=== PATIENT | male | born 1975 | race Two or more races ===

== ENCOUNTER 2024-01-09 16:35 | Inpatient (IN) | payer MEDICAID, OTHER ==
[~2024-01-09] VITALS: Ht 182.9 cm; Wt 152.0 kg
[2024-01-09 17:42] LABS: Urine WBC None Seen /hpf (0 - 3)
[2024-01-09 18:07] LABS: Amphetamine Screen, Urine Neg (NEGATIVE); Barbiturate Scree,Urine Neg (NEGATIVE); Benzodiazephine Screen, Urine Neg (NEGATIVE); Cannabinoid Screen, Urine Pos (NEGATIVE); Cocaine Screen, Urine Neg (NEGATIVE); Opiate Scree,Urine Neg (NEGATIVE); Phencyclidine Screen, Urine Neg (NEGATIVE)
[2024-01-09 18:24] LABS: Urine Bacteria NONE SEEN /hpf (None Seen); Urine Blood Negative /uL (Negative); Urine Clarity Clear (Clear); Urine Color Colorless (Yellow); Urine Protein, UAD Negative (Negative); Urine Specific Gravity 1.003 (1.001-1.035); Urine Urobilinogen Normal (Negative); Urine pH 5.5 (5.0-8.0)
[2024-01-09 18:25] LABS: Basophils # (auto) 0.1 10 ^3/uL (0-0.2); Basophils % (auto) 1.3 % (0.0-2.0); Eosinophils # (auto) 0 10 ^3/uL (0-0.8); Eosinophils % (auto) 0.6 % (0.0-7.0); Hematocrit 48.9 % (41.0-53.0); Hemoglobin 16.5 g/dL (13.5-17.5); Lymphocytes # (auto) 1.8 10 ^3/uL (0.4-5.4); Lymphocytes % (auto) 30.6 % (10.0-50.0); Mean Corpuscular Hemoglobin 31.7 pg (28.0-32.0); Mean Corpuscular Hgb Conc. 33.7 g/dL (32.0-36.0); Mean Corpuscular Volume 94.1 fL (80.0-100.0); Monocytes # (auto) 0.8 10 ^3/uL (0-1.3); Monocytes % (auto) 14.4 % (0.0-12.0); Neutrophils # (auto) 3.1 10 ^3/uL (1.6-8.6); Neutrophils % (auto) 53.1 % (37.0-80.0); Nucleated Red Blood Cells % 0.3 %; Red Blood Cells 5.19 10^6/uL (4.5-5.90); Red Cell Distribution Width 15.1 % (11.8-14.3); White Blood Cell 5.9 10^3/uL (4.4-10.8)
[2024-01-09 18:34] LABS: Alanine Aminotransferase 27 U/L (7-40); Albumin 4.2 g/dL (3.2-4.8); Alkaline Phosphatase 90 U/L (46-116); Anion Gap 5 (5-15); Aspartate Aminotransferase 32 U/L (13-40); Calcium 8.9 mg/dL (8.7-10.4); Carbon Dioxide 25 mmol/L (20-30); Chloride 103 mmol/L (98-107); Glucose 75 mg/dL (74-106); Lipase 66 U/L (12-53); Sodium 133 mmol/L (136-145)
[2024-01-09 18:35] LABS: Bilirubin, Total 1.2 mg/dL (0.2-1.0); Total Protein 7.7 g/dL (5.7-8.2)
[2024-01-09 18:51] LABS: BUN/Creatinine Ratio 11.3 (10.0-20.0); Blood Urea Nitrogen 9 mg/dL (9-23)
[2024-01-09 18:56] LABS: Blood Alcohol 285.8 mg/dL (<10)
[2024-01-09] MEDS ORDERED: hydrALAZINE HCL 20 MG/ML VL IV PRN (22:00)
[2024-01-09] MEDS ORDERED: ONDANSETRON HCL 4 MG/2 ML VIAL IV PRN (22:00)
[2024-01-09] MEDS ORDERED: DOCUSATE SOD 100 MG CAP PO PRN (22:00)
[2024-01-09] MEDS: SODIUM CHLORIDE 0.9% 1,000 ML IV SCH (22:25)
[2024-01-09] MEDS ORDERED: NITROGLYCERIN 0.4 MG SL TAB SL PRN (22:45)
[2024-01-09] MEDS ORDERED: MORPHINE SULFATE INJ 2 MG/ml SYRG IV PRN (22:45)
[2024-01-10] VITALS (8 sets, daily range): BP systolic 110–125; BP diastolic 62–75; PULSE 55–145; RESP 18–21; TEMP 97.9–98.8; O2SAT 96–98
[2024-01-10 07:00] LABS: Basophils # (auto) 0 10 ^3/uL (0-0.2); Basophils % (auto) 0.8 % (0.0-2.0); Eosinophils # (auto) 0.2 10 ^3/uL (0-0.8); Eosinophils % (auto) 2.6 % (0.0-7.0); Hematocrit 48.8 % (41.0-53.0); Hemoglobin 16.5 g/dL (13.5-17.5); Lymphocytes # (auto) 2.2 10 ^3/uL (0.4-5.4); Lymphocytes % (auto) 37.8 % (10.0-50.0); Mean Corpuscular Hemoglobin 32.3 pg (28.0-32.0); Mean Corpuscular Hgb Conc. 33.9 g/dL (32.0-36.0); Mean Corpuscular Volume 95.2 fL (80.0-100.0); Monocytes # (auto) 0.9 10 ^3/uL (0-1.3); Monocytes % (auto) 15.1 % (0.0-12.0); Neutrophils # (auto) 2.6 10 ^3/uL (1.6-8.6); Neutrophils % (auto) 43.7 % (37.0-80.0); Nucleated Red Blood Cells % 0.6 %; Red Blood Cells 5.13 10^6/uL (4.5-5.90); White Blood Cell 5.9 10^3/uL (4.4-10.8)
[2024-01-10 07:24] LABS: Alanine Aminotransferase 27 U/L (7-40); Albumin 4.1 g/dL (3.2-4.8); Alkaline Phosphatase 81 U/L (46-116); Anion Gap 8 (5-15); Aspartate Aminotransferase 39 U/L (13-40); BUN/Creatinine Ratio 8.3 (10.0-20.0); Blood Urea Nitrogen 6 mg/dL (9-23); Calcium 9.1 mg/dL (8.5-10.1); Carbon Dioxide 21 mmol/L (20-30); Chloride 107 mmol/L (98-107); Glucose 73 mg/dL (74-106); Potassium 3.9 mmol/L (3.5-5.1); Sodium 136 mmol/L (136-145)
[2024-01-10 07:25] LABS: Total Protein 7.6 g/dL (5.7-8.2)
[2024-01-10] MEDS: FOLIC ACID 1 MG TAB PO SCH (10:24)
[2024-01-10] MEDS: THIAMINE HCL 100 MG TAB PO SCH (10:24)
[2024-01-10] MEDS: MULTIPLE VITAMIN TAB PO SCH (10:24)
[2024-01-10] MEDS: LACTULOSE 20Gm/30ML SOLN PO SCH (10:24)
[2024-01-10] MEDS ORDERED: ACET-1881 PO (14:22)
[2024-01-10] MEDS ORDERED: FLUO-125 PO (15:38)
[2024-01-10] MEDS ORDERED: FERR325T24 PO (15:38)
[2024-01-10] MEDS ORDERED: IBUP1TAB4 PO (15:38)
[2024-01-10] MEDS ORDERED: LACT10PA2 PO (15:38)
[2024-01-10] MEDS ORDERED: CHOL20007 PO (15:38)
[2024-01-10] MEDS ORDERED: NALT380I IM (17:31)
[2024-01-10] MEDS ORDERED: THIA100T10 GT (17:31)
[2024-01-10] MEDS ORDERED: LOSA25TA15 PO (17:31)
[2024-01-10] MEDS ORDERED: RIFA550T PO (17:31)
[2024-01-10] MEDS ORDERED: PANT40T PO (17:31)
[2024-01-10] MEDS ORDERED: MULT-1018 PO (17:31)
[2024-01-10] MEDS: LORazepam 2MG/ML-1ML VIAL IV PRN (20:27)
[2024-01-10] MEDS: GABAPENTIN 300 MG CAP PO SCH (23:00)
[2024-01-10] MEDS: rifAXIMin 550 MG TAB PO SCH (23:00)
[2024-01-11] VITALS (7 sets, daily range): BP systolic 119–146; BP diastolic 78–96; PULSE 54–75; RESP 19–20; TEMP 98.1–98.8; O2SAT 96–98
[2024-01-11] MEDS: FLUoxetine HCL 20 MG CAP PO SCH (10:40)
[2024-01-11] MEDS: CHOLECALCIFEROL (VITD3) 2,000 UNIT CAP/TAB PO SCH (10:40)
[2024-01-11] MEDS: PANTOPRAZOLE 40 MG TAB PO SCH (10:40)
[2024-01-11] MEDS: LOSARTAN POTASSIUM 25 MG TAB PO SCH (10:41)
[2024-01-12 05:00] VITALS: BP 127/92; PULSE 65; RESP 20; TEMP 98.3; O2SAT 95
[2024-01-12 08:00] VITALS: PULSE 68; RESP 19; O2SAT 98
[2024-01-12 08:06] LABS: Anion Gap 6 (5-15); Carbon Dioxide 23 mmol/L (20-30); Chloride 109 mmol/L (98-107); Sodium 138 mmol/L (136-145)
[2024-01-12 08:12] LABS: BUN/Creatinine Ratio 8.3 (10.0-20.0); Blood Urea Nitrogen 6 mg/dL (9-23); Glucose 88 mg/dL (74-106)
[2024-01-12 08:23] LABS: Basophils # (auto) 0.1 10 ^3/uL (0-0.2); Basophils % (auto) 2.3 % (0.0-2.0); Eosinophils # (auto) 0.2 10 ^3/uL (0-0.8); Eosinophils % (auto) 3.3 % (0.0-7.0); Lymphocytes # (auto) 1.7 10 ^3/uL (0.4-5.4); Lymphocytes % (auto) 34.3 % (10.0-50.0); Monocytes # (auto) 0.9 10 ^3/uL (0-1.3); Monocytes % (auto) 17.5 % (0.0-12.0); Neutrophils # (auto) 2.1 10 ^3/uL (1.6-8.6); Neutrophils % (auto) 42.6 % (37.0-80.0); Nucleated Red Blood Cells % 0.6 %; White Blood Cell 4.9 10^3/uL (4.4-10.8)
[2024-01-12 08:24] LABS: Hematocrit 46.4 % (41.0-53.0); Hemoglobin 15.8 g/dL (13.5-17.5); Mean Corpuscular Hemoglobin 31.9 pg (28.0-32.0); Mean Corpuscular Hgb Conc. 34.1 g/dL (32.0-36.0); Mean Corpuscular Volume 93.4 fL (80.0-100.0); Red Blood Cells 4.97 10^6/uL (4.5-5.90); Red Cell Distribution Width 14.7 % (11.8-14.3)
[2024-01-12] MEDS: FERROUS SULFATE 325mg EC TAB PO SCH (09:38)
[2024-01-12] MEDS: IBUPROFEN 600 MG TAB PO PRN (09:47)
[2024-01-12 13:00] VITALS: BP 128/67; PULSE 62; RESP 19; TEMP 97.4; O2SAT 94
[2024-01-12 17:11] VITALS: BP 127/76; PULSE 51; RESP 19; TEMP 97.7; O2SAT 96
[2024-01-12 20:00] VITALS: PULSE 68
[2024-01-12 22:00] VITALS: BP 139/83; PULSE 54; RESP 20; TEMP 97.8; O2SAT 97
[2024-01-13 05:00] VITALS: BP 146/84; PULSE 61; RESP 20; TEMP 98.7; O2SAT 98
[2024-01-13 07:55] VITALS: PULSE 54
[2024-01-13 09:00] VITALS: BP 144/94; PULSE 61; RESP 21; TEMP 97.4; O2SAT 96
[2024-01-13] MEDS ORDERED: LACT10PA2 PO (11:38)
[2024-01-13 12:42] VITALS: BP 137/86; PULSE 69; RESP 20; TEMP 97.3; O2SAT 98
== END 2024-01-13 15:40 | disposition home or self-care (01) | DRG 280 ==
LOC: EDBD 16:35 → ER 16:35 → TELE 22:46 → TELE-WESTW 01-10 06:03
PROVIDERS: ADMIT Nurse Practitioner Family; ATTEND Internal Medicine
DX: K76.82 Hepatic encephalopathy (principal); K70.30 Alcoholic cirrhosis of liver without ascites; I50.9 Heart failure, unspecified; E66.01 Morbid (severe) obesity due to excess calories; Y90.8 Blood alcohol level of 240 mg/100 ml or more; F41.9 Anxiety disorder, unspecified; G47.30 Sleep apnea, unspecified; F10.120 Alcohol abuse with intoxication, uncomplicated; Z68.42 Body mass index [BMI] 45.0-49.9, adult
CPT/HCPCS: 36415; 71046; 80048; 80053; 80307; 80320; 81001; 82140; 83690; 83880; 85025; 99291; G0378

== ENCOUNTER 2024-04-23 07:02 | Inpatient (IN) | payer MEDICAID ==
[~2024-04-23] VITALS: Ht 182.9 cm; Wt 169.0 kg
[2024-04-23] VITALS (7 sets, daily range): BP systolic 107–111; BP diastolic 53–65; PULSE 63–89; RESP 18–20; TEMP 98.3–98.4; O2SAT 95–98
[~2024-04-23 07:02] MED LIST: ACET-1881 PO; CHOL20007 PO; FERR325T24 PO; FLUO-125 PO; IBUP1TAB4 PO; LACT10PA2 PO; LOSA-533 PO; MULT-1018 PO; NALT380I IM; PANT40T PO; RIFA550T PO; THIA100T10 GT
[2024-04-23 08:19] LABS: Basophils # (auto) 0.1 10 ^3/uL (0-0.2); Basophils % (auto) 1.1 % (0.0-2.0); Eosinophils # (auto) 0.3 10 ^3/uL (0-0.8); Eosinophils % (auto) 3.8 % (0.0-7.0); Hematocrit 39.6 % (41.0-53.0); Hemoglobin 13.6 g/dL (13.5-17.5); Lymphocytes # (auto) 3.2 10 ^3/uL (0.4-5.4); Lymphocytes % (auto) 43.9 % (10.0-50.0); Mean Corpuscular Hemoglobin 32.7 pg (28.0-32.0); Mean Corpuscular Hgb Conc. 34.2 g/dL (32.0-36.0); Mean Corpuscular Volume 95.6 fL (80.0-100.0); Monocytes # (auto) 0.9 10 ^3/uL (0-1.3); Monocytes % (auto) 12.6 % (0.0-12.0); Neutrophils # (auto) 2.8 10 ^3/uL (1.6-8.6); Neutrophils % (auto) 38.6 % (37.0-80.0); Nucleated Red Blood Cells % 0.7 %; Red Blood Cells 4.15 10^6/uL (4.5-5.90); White Blood Cell 7.3 10^3/uL (4.4-10.8)
[2024-04-23 08:24] LABS: Chloride 106 mmol/L (98-107); Potassium 3.8 mmol/L (3.5-5.1); Sodium 137 mmol/L (136-145)
[2024-04-23 08:25] LABS: Anion Gap 6 (5-15); Carbon Dioxide 25 mmol/L (20-30)
[2024-04-23 08:26] LABS: Calcium 9.1 mg/dL (8.5-10.1)
[2024-04-23 08:31] LABS: BUN/Creatinine Ratio 13.5 (10.0-20.0); Blood Urea Nitrogen 12 mg/dL (9-23); Glucose 80 mg/dL (74-106)
[2024-04-23 09:12] LABS: Amphetamine Screen, Urine Neg (NEGATIVE)
[2024-04-23 09:14] LABS: Barbiturate Scree,Urine Neg (NEGATIVE); Benzodiazephine Screen, Urine Neg (NEGATIVE); Cannabinoid Screen, Urine Neg (NEGATIVE); Cocaine Screen, Urine Neg (NEGATIVE); Opiate Scree,Urine Neg (NEGATIVE); Phencyclidine Screen, Urine Neg (NEGATIVE)
[2024-04-23] MEDS ORDERED: MORPHINE SULFATE INJ 2 MG/ml SYRG IV PRN (12:00)
[2024-04-23] MEDS ORDERED: NITROGLYCERIN 0.4 MG SL TAB SL PRN (12:00)
[2024-04-23] MEDS: LACTULOSE 20Gm/30ML SOLN PO SCH (12:39)
[2024-04-23] MEDS: FUROSEMIDE 20 MG/2 ML VIAL IV ONE (12:39)
[2024-04-23 14:14] LABS: Erythrocyte Sedimentation Rate 8 mm/hr (0-20)
[2024-04-23] MEDS: rifAXIMin 550 MG TAB PO SCH (21:42)
[2024-04-24] VITALS (9 sets, daily range): BP systolic 108–141; BP diastolic 60–82; PULSE 58–86; RESP 17–20; TEMP 97.5–98.3; O2SAT 94–98
[2024-04-24 06:49] LABS: Alanine Aminotransferase 33 U/L (7-40); Albumin 3.5 g/dL (3.2-4.8); Alkaline Phosphatase 73 U/L (46-116); Anion Gap 4 (5-15); Aspartate Aminotransferase 55 U/L (13-40); BUN/Creatinine Ratio 14.3 (10.0-20.0); Blood Urea Nitrogen 10 mg/dL (9-23); Calcium 9.2 mg/dL (8.7-10.4); Carbon Dioxide 26 mmol/L (20-30); Chloride 108 mmol/L (98-107); Glucose 101 mg/dL (74-106); Potassium 4.2 mmol/L (3.5-5.1); Sodium 138 mmol/L (136-145)
[2024-04-24 06:50] LABS: Bilirubin, Total 1.9 mg/dL (0.2-1.0); Total Protein 6.6 g/dL (5.7-8.2)
[2024-04-24 07:02] LABS: Basophils # (auto) 0.1 10 ^3/uL (0-0.2); Basophils % (auto) 0.9 % (0.0-2.0); Eosinophils # (auto) 0.1 10 ^3/uL (0-0.8); Eosinophils % (auto) 1.2 % (0.0-7.0); Hematocrit 41.1 % (41.0-53.0); Hemoglobin 14.4 g/dL (13.5-17.5); Lymphocytes # (auto) 1.3 10 ^3/uL (0.4-5.4); Lymphocytes % (auto) 20.4 % (10.0-50.0); Mean Corpuscular Hemoglobin 32.8 pg (28.0-32.0); Mean Corpuscular Volume 93.9 fL (80.0-100.0); Monocytes # (auto) 0.8 10 ^3/uL (0-1.3); Monocytes % (auto) 13.4 % (0.0-12.0); Neutrophils % (auto) 64.1 % (37.0-80.0); Nucleated Red Blood Cells % 0.4 %; Red Blood Cells 4.38 10^6/uL (4.5-5.90); White Blood Cell 6.3 10^3/uL (4.4-10.8)
[2024-04-24] MEDS: ENOXAPARIN SOD 40 MG/0.4 ML SYRINGE SC SCH (08:55)
[2024-04-24] MEDS: THIAMINE HCL 100 MG TAB PO SCH (09:44)
[2024-04-24] MEDS: FLUoxetine HCL 20 MG CAP PO SCH (09:44)
[2024-04-24] MEDS: FUROSEMIDE 20 MG/2 ML VIAL IV SCH (09:45)
[2024-04-24] MEDS: CHOLECALCIFEROL (VITD3) 1,000UNIT=25mCg TAB PO SCH (09:46)
[2024-04-24] MEDS: PANTOPRAZOLE 40 MG TAB PO SCH (09:47)
[2024-04-24] MEDS: LOSARTAN POTASSIUM 25 MG TAB PO SCH (09:48)
[2024-04-24] MEDS ORDERED: THIAMINE HCL 100 MG TAB GT SCH (10:00)
[2024-04-24] MEDS ORDERED: PATIENTS OWN MEDICATION (Cholecalciferol (Vitamin D3) 2,000 UNIT) PO SCH (10:00)
[2024-04-24] MEDS: CLINDAMYCIN 300MG IV 50 ML IV ONE (11:43)
[2024-04-24] MEDS ORDERED: IOHEXOL 350 MG/ML 100ML IJ ONE (13:36)
[2024-04-24] MEDS ORDERED: CLINDAMYCIN 300MG IV 50 ML IV SCH ×2 (15:15→18:00)
[2024-04-24] MEDS ORDERED: CLINDAMYCIN 300MG IV 50 ML IV ONE (19:30)
[2024-04-24] MEDS: CLINDAMYCIN 300MG IV 50 ML IV SCH (19:47)
[2024-04-25] VITALS (9 sets, daily range): BP systolic 108–136; BP diastolic 58–87; PULSE 62–78; RESP 18–20; TEMP 97.3–98.5; O2SAT 94–98
[2024-04-25 06:18] LABS: Basophils # (auto) 0.1 10 ^3/uL (0-0.2); Basophils % (auto) 0.9 % (0.0-2.0); Eosinophils # (auto) 0.3 10 ^3/uL (0-0.8); Eosinophils % (auto) 4.8 % (0.0-7.0); Hematocrit 40.8 % (41.0-53.0); Hemoglobin 14.1 g/dL (13.5-17.5); Lymphocytes # (auto) 1.8 10 ^3/uL (0.4-5.4); Lymphocytes % (auto) 30.6 % (10.0-50.0); Mean Corpuscular Hemoglobin 32.3 pg (28.0-32.0); Mean Corpuscular Hgb Conc. 34.5 g/dL (32.0-36.0); Mean Corpuscular Volume 93.7 fL (80.0-100.0); Monocytes # (auto) 0.9 10 ^3/uL (0-1.3); Monocytes % (auto) 14.7 % (0.0-12.0); Neutrophils # (auto) 2.9 10 ^3/uL (1.6-8.6); Nucleated Red Blood Cells % 0.2 %; Red Blood Cells 4.35 10^6/uL (4.5-5.90); Red Cell Distribution Width 13.8 % (11.8-14.3)
[2024-04-25 06:36] LABS: Chloride 108 mmol/L (98-107); Sodium 137 mmol/L (136-145)
[2024-04-25 06:37] LABS: Anion Gap 5 (5-15); Calcium 9.4 mg/dL (8.7-10.4); Carbon Dioxide 24 mmol/L (20-30)
[2024-04-25 06:42] LABS: Blood Urea Nitrogen 7 mg/dL (9-23); Glucose 88 mg/dL (74-106)
[2024-04-26 01:00] VITALS: BP 119/83; PULSE 59; RESP 17; TEMP 97.9; O2SAT 94
[2024-04-26 05:00] VITALS: BP 122/66; PULSE 69; RESP 20; TEMP 98.8; O2SAT 100
[2024-04-26 06:09] LABS: Basophils # (auto) 0.1 10 ^3/uL (0-0.2); Basophils % (auto) 1.1 % (0.0-2.0); Eosinophils # (auto) 0.3 10 ^3/uL (0-0.8); Eosinophils % (auto) 4.7 % (0.0-7.0); Hematocrit 43.3 % (41.0-53.0); Lymphocytes # (auto) 1.9 10 ^3/uL (0.4-5.4); Lymphocytes % (auto) 29.2 % (10.0-50.0); Mean Corpuscular Hgb Conc. 34.6 g/dL (32.0-36.0); Mean Corpuscular Volume 95.4 fL (80.0-100.0); Neutrophils # (auto) 3.3 10 ^3/uL (1.6-8.6); Nucleated Red Blood Cells % 0.1 %; Red Blood Cells 4.54 10^6/uL (4.5-5.90); Red Cell Distribution Width 13.8 % (11.8-14.3); White Blood Cell 6.5 10^3/uL (4.4-10.8)
[2024-04-26 06:14] LABS: Chloride 109 mmol/L (98-107); Sodium 141 mmol/L (136-145)
[2024-04-26 06:15] LABS: Anion Gap 6 (5-15); Calcium 9.3 mg/dL (8.7-10.4); Carbon Dioxide 26 mmol/L (20-30)
[2024-04-26 06:20] LABS: Blood Urea Nitrogen 9 mg/dL (9-23); Glucose 88 mg/dL (74-106)
[2024-04-26 08:00] VITALS: PULSE 60
[2024-04-26 09:00] VITALS: BP 124/69; PULSE 66; RESP 20; TEMP 97.9; O2SAT 96
[2024-04-26] MEDS ORDERED: PATIENTS OWN MEDICATION (Ferrous Sulfate 325 MG) PO SCH (10:00)
[2024-04-26] MEDS: FERROUS SULFATE 325mg EC TAB PO SCH (10:36)
[2024-04-26] MEDS ORDERED: FURO1TAB31 PO (12:41)
[2024-04-26] MEDS ORDERED: DOXY-448 PO (12:41)
[2024-04-26 13:00] VITALS: BP 109/64; PULSE 83; RESP 20; TEMP 98.7; O2SAT 96
== END 2024-04-26 15:20 | disposition home or self-care (01) | DRG 383 ==
LOC: ER 07:02 → TELE 12:11 → TELE-CENTR 14:28
PROVIDERS: ADMIT Registered Nurse; ATTEND Registered Nurse
DX: L03.116 Cellulitis of left lower limb (principal); K76.82 Hepatic encephalopathy; I50.32 Chronic diastolic (congestive) heart failure; K74.60 Unspecified cirrhosis of liver; I11.0 Hypertensive heart disease with heart failure; Z68.43 Body mass index [BMI] 50.0-59.9, adult; F32.A Depression, unspecified; G89.29 Other chronic pain; E66.01 Morbid (severe) obesity due to excess calories; F10.120 Alcohol abuse with intoxication, uncomplicated; Z59.00 Homelessness unspecified; Z86.73 Personal history of transient ischemic attack (TIA), and cerebral infarction without residual deficits; Y90.7 Blood alcohol level of 200-239 mg/100 ml; Z91.199 Patient's noncompliance with other medical treatment and regimen due to unspecified reason
CPT/HCPCS: 36415; 71046; 73706; 80048; 80053; 80307; 80320; 82140; 83880; 84484; 85025; 85652; 93005; 93306; 93971; 96374; 99291; G0378; J3490

== ENCOUNTER 2024-07-02 08:43 | Inpatient (IN) | payer MEDICAID ==
[~2024-07-02] VITALS: Ht 182.9 cm; Wt 175.8 kg
[~2024-07-02 08:43] MED LIST changes: +APIX5TAB PO; +DOXY-448 PO; +FURO1TAB31 PO; -THIA100T10 GT; +THIA100T10 PO
[2024-07-02 09:10] VITALS: PULSE 84; RESP 13; O2SAT 96
[2024-07-02] MEDS: FUROSEMIDE 40 MG/4 ML VIAL IV ONE ×2 (09:45→12:16)
[2024-07-02 10:44] LABS: Basophils # (auto) 0.1 10 ^3/uL (0-0.2); Basophils % (auto) 0.7 % (0.0-2.0); Eosinophils # (auto) 0.1 10 ^3/uL (0-0.8); Eosinophils % (auto) 1.1 % (0.0-7.0); Hematocrit 45.2 % (41.0-53.0); Hemoglobin 15.9 g/dL (13.5-17.5); Lymphocytes # (auto) 3.4 10 ^3/uL (0.4-5.4); Lymphocytes % (auto) 40.4 % (10.0-50.0); Mean Corpuscular Hemoglobin 32.8 pg (28.0-32.0); Mean Corpuscular Hgb Conc. 35.1 g/dL (32.0-36.0); Mean Corpuscular Volume 93.3 fL (80.0-100.0); Monocytes # (auto) 1.1 10 ^3/uL (0-1.3); Monocytes % (auto) 12.8 % (0.0-12.0); Neutrophils # (auto) 3.8 10 ^3/uL (1.6-8.6); Nucleated Red Blood Cells % 0.1 %; Red Blood Cells 4.84 10^6/uL (4.5-5.90); Red Cell Distribution Width 14.1 % (11.8-14.3); White Blood Cell 8.5 10^3/uL (4.4-10.8)
[2024-07-02 10:47] LABS: Chloride 107 mmol/L (98-107); Potassium 3.4 mmol/L (3.5-5.1); Sodium 138 mmol/L (136-145)
[2024-07-02 10:48] LABS: Anion Gap 11 (5-15); Carbon Dioxide 20 mmol/L (20-30)
[2024-07-02 10:53] LABS: Glucose 87 mg/dL (74-106)
[2024-07-02 10:54] LABS: BUN/Creatinine Ratio 8.6 (10.0-20.0); Blood Urea Nitrogen 7 mg/dL (9-23)
[2024-07-02 11:10] LABS: Urine Bacteria None Seen /hpf (None Seen); Urine WBC None Seen /hpf (0 - 3)
[2024-07-02 11:24] LABS: Urine Blood Negative /uL (Negative); Urine Clarity Clear (Clear); Urine Color Light-Yellow (Yellow); Urine Protein, UAD Negative (Negative); Urine Specific Gravity 1.005 (1.001-1.035); Urine Urobilinogen Normal (Negative)
[2024-07-02] MEDS ORDERED: POTASSIUM EFFERVESENT TAB 25 MEQ PO ONE (12:00)
[2024-07-02] MEDS: POTASSIUM EFFERVESENT TAB 25 MEQ PO ONE (12:23)
[2024-07-02] MEDS ORDERED: NALTREXONE 380 MG IM SCH (14:45)
[2024-07-02] MEDS ORDERED: NITROGLYCERIN 0.4 MG SL TAB SL PRN (14:45)
[2024-07-02] MEDS: levETIRAcetam 1000 mg/100ml 100 ML IV ONE (15:22)
[2024-07-02 15:26] LABS: INR 1.15 (0.9-1.15); Prothrombin Time 12.1 sec (9.3-11.8)
[2024-07-02 16:20] VITALS: BP 116/71; PULSE 95; RESP 22; TEMP 97.4; O2SAT 97
[2024-07-02 16:42] VITALS: PULSE 95; RESP 22; O2SAT 97
[2024-07-02] MEDS: FUROSEMIDE 20 MG/2 ML VIAL IV SCH (18:35)
[2024-07-02 18:36] LABS: Amphetamine Screen, Urine Pos (NEGATIVE); Barbiturate Scree,Urine Neg (NEGATIVE); Benzodiazephine Screen, Urine Neg (NEGATIVE); Cocaine Screen, Urine Neg (NEGATIVE); Opiate Scree,Urine Neg (NEGATIVE)
[2024-07-02 18:37] LABS: Cannabinoid Screen, Urine Neg (NEGATIVE); Phencyclidine Screen, Urine Neg (NEGATIVE)
[2024-07-02 20:00] VITALS: PULSE 72; RESP 19; O2SAT 95
[2024-07-02 21:00] VITALS: BP 131/74; PULSE 75; RESP 18; TEMP 98.4; O2SAT 95
[2024-07-02] MEDS: cefTRIAXone 1GM/50ML D5W 50 ML IV ONE (21:27)
[2024-07-02] MEDS: MAGNESIUM OXIDE 400 MG TAB PO ONE (21:28)
[2024-07-02] MEDS: ASPirin 81 mg TAB PO ONE (21:28)
[2024-07-02] MEDS: APIXABAN 5 MG TAB PO SCH (21:33)
[2024-07-02] MEDS: rifAXIMin 550 MG TAB PO SCH (21:33)
[2024-07-02] MEDS: ATORVASTATIN 20 MG TAB PO SCH (21:33)
[2024-07-02] MEDS ORDERED: LACTULOSE 20Gm/30ML SOLN PO SCH (22:00)
[2024-07-02] MEDS: METOPROLOL TARTRATE 25 MG TAB PO SCH (22:30)
[2024-07-02] MEDS: levETIRAcetam 1000 mg/100ml 100 ML IV SCH (22:31)
[2024-07-03] VITALS (7 sets, daily range): BP systolic 111–129; BP diastolic 66–86; PULSE 61–87; RESP 18–21; TEMP 97.8–98.8; O2SAT 95–98
[2024-07-03 05:48] LABS: Basophils # (auto) 0.1 10 ^3/uL (0-0.2); Eosinophils # (auto) 0.3 10 ^3/uL (0-0.8); Eosinophils % (auto) 3.9 % (0.0-7.0); Hematocrit 46.7 % (41.0-53.0); Hemoglobin 16.5 g/dL (13.5-17.5); Lymphocytes # (auto) 2.5 10 ^3/uL (0.4-5.4); Lymphocytes % (auto) 35.3 % (10.0-50.0); Mean Corpuscular Hgb Conc. 35.3 g/dL (32.0-36.0); Mean Corpuscular Volume 93.6 fL (80.0-100.0); Monocytes # (auto) 0.7 10 ^3/uL (0-1.3); Monocytes % (auto) 10.2 % (0.0-12.0); Neutrophils # (auto) 3.6 10 ^3/uL (1.6-8.6); Neutrophils % (auto) 49.6 % (37.0-80.0); Nucleated Red Blood Cells % 0.1 %; Red Cell Distribution Width 13.9 % (11.8-14.3); White Blood Cell 7.2 10^3/uL (4.4-10.8)
[2024-07-03 06:16] LABS: Alanine Aminotransferase 25 U/L (7-40); Albumin 3.8 g/dL (3.2-4.8); Alkaline Phosphatase 94 U/L (46-116); Anion Gap 7 (5-15); Aspartate Aminotransferase 40 U/L (13-40); BUN/Creatinine Ratio 9.9 (10.0-20.0); Blood Urea Nitrogen 7 mg/dL (9-23); Calcium 9.1 mg/dL (8.7-10.4); Carbon Dioxide 25 mmol/L (20-30); Chloride 107 mmol/L (98-107); Cholesterol 102 mg/dL (< 200); Glucose 84 mg/dL (74-106); LDL Cholesterol 54 mg/dL (< 100); Potassium 4.1 mmol/L (3.5-5.1); Sodium 139 mmol/L (136-145); Triglycerides 90 mg/dL (< 150)
[2024-07-03 06:17] LABS: Bilirubin, Total 1.2 mg/dL (0.2-1.0); HDL Cholesterol 39 mg/dL (40-59); Total Protein 7.2 g/dL (5.7-8.2)
[2024-07-03] MEDS: LACTULOSE 20Gm/30ML SOLN PO ONE (08:46)
[2024-07-03] MEDS: FLUoxetine HCL 20 MG CAP PO SCH (09:53)
[2024-07-03] MEDS: MULTIPLE VITAMIN TAB PO SCH (09:54)
[2024-07-03] MEDS: PANTOPRAZOLE 40 MG TAB PO SCH (09:54)
[2024-07-03] MEDS: ASPirin 81 mg TAB PO SCH (09:54)
[2024-07-03] MEDS: CHOLECALCIFEROL (VITD3) 1,000UNIT=25mCg TAB PO SCH (09:54)
[2024-07-03] MEDS: cefTRIAXone 1GM/50ML D5W 50 ML IV SCH (09:54)
[2024-07-03] MEDS: EMPAGLIFLOZIN 10 MG TAB PO SCH (09:55)
[2024-07-03] MEDS: THIAMINE HCL 100 MG TAB GT SCH (09:55)
[2024-07-03] MEDS: LOSARTAN POTASSIUM 25 MG TAB PO SCH (09:56)
[2024-07-03] MEDS ORDERED: LOSARTAN POTASSIUM 25 MG TAB PO SCH (10:00)
[2024-07-03] MEDS: LACTULOSE 20Gm/30ML SOLN PO SCH (12:50)
[2024-07-04] VITALS (7 sets, daily range): BP systolic 103–132; BP diastolic 53–67; PULSE 55–78; RESP 18–21; TEMP 97.6–98.4; O2SAT 90–99
[2024-07-04 14:49] LABS: Alanine Aminotransferase 26 U/L (7-40); Albumin 3.9 g/dL (3.2-4.8); Alkaline Phosphatase 95 U/L (46-116); Anion Gap 5 (5-15); Aspartate Aminotransferase 32 U/L (13-40); BUN/Creatinine Ratio 10.6 (10.0-20.0); Blood Urea Nitrogen 11 mg/dL (9-23); Calcium 9.8 mg/dL (8.7-10.4); Carbon Dioxide 28 mmol/L (20-30); Chloride 105 mmol/L (98-107); Glucose 107 mg/dL (74-106); Sodium 138 mmol/L (136-145)
[2024-07-04 14:50] LABS: Bilirubin, Total 1.4 mg/dL (0.2-1.0); Total Protein 7.3 g/dL (5.7-8.2)
[2024-07-05] VITALS (8 sets, daily range): BP systolic 99–152; BP diastolic 44–75; PULSE 56–95; RESP 16–21; TEMP 97.8–98.3; O2SAT 95–98
[2024-07-05 07:25] LABS: Basophils # (auto) 0 10 ^3/uL (0-0.2); Basophils % (auto) 0.6 % (0.0-2.0); Eosinophils # (auto) 0.3 10 ^3/uL (0-0.8); Eosinophils % (auto) 4.5 % (0.0-7.0); Hematocrit 49.4 % (41.0-53.0); Hemoglobin 17.4 g/dL (13.5-17.5); Lymphocytes % (auto) 28.2 % (10.0-50.0); Mean Corpuscular Hemoglobin 32.9 pg (28.0-32.0); Mean Corpuscular Hgb Conc. 35.3 g/dL (32.0-36.0); Mean Corpuscular Volume 93.3 fL (80.0-100.0); Monocytes # (auto) 1.1 10 ^3/uL (0-1.3); Monocytes % (auto) 14.8 % (0.0-12.0); Neutrophils # (auto) 3.7 10 ^3/uL (1.6-8.6); Neutrophils % (auto) 51.9 % (37.0-80.0); Nucleated Red Blood Cells % 0.2 %; Red Cell Distribution Width 13.8 % (11.8-14.3); White Blood Cell 7.1 10^3/uL (4.4-10.8)
[2024-07-05 07:48] LABS: Alanine Aminotransferase 26 U/L (7-40); Albumin 3.8 g/dL (3.2-4.8); Alkaline Phosphatase 106 U/L (46-116); Anion Gap 6 (5-15); Aspartate Aminotransferase 33 U/L (13-40); BUN/Creatinine Ratio 11.4 (10.0-20.0); Bilirubin, Total 1.1 mg/dL (0.2-1.0); Blood Urea Nitrogen 12 mg/dL (9-23); Calcium 9.8 mg/dL (8.7-10.4); Carbon Dioxide 27 mmol/L (20-30); Chloride 105 mmol/L (98-107); Glucose 84 mg/dL (74-106); Sodium 138 mmol/L (136-145); Total Protein 7.4 g/dL (5.7-8.2)
[2024-07-05 11:05] LABS: Free T3 2.82 pg/mL (2.3-4.2); Free T4 (Free Thyroxine) 0.84 ng/dL (0.89-1.76)
[2024-07-05] MEDS: FOLIC ACID 1 MG TAB PO ONE (15:57)
[2024-07-05] MEDS: levETIRAcetam 500 MG TAB PO SCH (21:28)
[2024-07-06 01:00] VITALS: BP 129/55; PULSE 57; RESP 18; TEMP 98.4; O2SAT 98
[2024-07-06 05:00] VITALS: BP 113/69; PULSE 53; RESP 19; TEMP 98.2; O2SAT 98
[2024-07-06 08:00] VITALS: PULSE 52; PULSE 58; RESP 20; O2SAT 92
[2024-07-06 09:00] VITALS: BP 118/76; PULSE 52; RESP 20; TEMP 98.8; O2SAT 92
[2024-07-06] MEDS: FUROSEMIDE 40 MG TAB PO SCH (10:12)
[2024-07-06] MEDS: FOLIC ACID 1 MG TAB PO SCH (10:13)
[2024-07-06] MEDS ORDERED: MULT-1018 PO (12:48)
[2024-07-06] MEDS ORDERED: LOSA-533 PO (12:48)
[2024-07-06] MEDS ORDERED: KEP500T PO (12:48)
[2024-07-06] MEDS ORDERED: NALT380I IM (12:48)
[2024-07-06] MEDS ORDERED: FERR325T24 PO (12:48)
[2024-07-06] MEDS ORDERED: THIA100T10 PO (12:48)
[2024-07-06] MEDS ORDERED: RIFA550T PO (12:48)
[2024-07-06] MEDS ORDERED: LACT10PA2 PO (12:48)
[2024-07-06] MEDS ORDERED: MET25T PO (12:48)
[2024-07-06] MEDS ORDERED: CHOL20007 PO (12:48)
[2024-07-06] MEDS ORDERED: EMPA1TAB PO (12:48)
[2024-07-06] MEDS ORDERED: FURO1TAB31 PO (12:48)
[2024-07-06] MEDS ORDERED: APIX5TAB PO (12:48)
[2024-07-06] MEDS ORDERED: PANT40T PO (12:48)
[2024-07-06] MEDS ORDERED: ACET-1881 PO (12:48)
[2024-07-06] MEDS ORDERED: FLUO-125 PO (12:48)
[2024-07-06 13:00] VITALS: BP 124/71; PULSE 57; RESP 18; TEMP 98; O2SAT 94
[2024-07-06 17:58] VITALS: BP 141/65; PULSE 99; RESP 16; TEMP 98.5; O2SAT 93
== END 2024-07-06 14:00 | disposition home or self-care (01) | DRG 280 ==
LOC: ER 08:43 → EDBD 08:43 → TELE 14:41 → TELE-WESTW 16:20
PROVIDERS: ADMIT Internal Medicine Geriatric Medicine; ATTEND Internal Medicine Geriatric Medicine
DX: K70.30 Alcoholic cirrhosis of liver without ascites (principal); I50.33 Acute on chronic diastolic (congestive) heart failure; E72.4 Disorders of ornithine metabolism; I48.20 Chronic atrial fibrillation, unspecified; G40.909 Epilepsy, unspecified, not intractable, without status epilepticus; Z68.43 Body mass index [BMI] 50.0-59.9, adult; K76.82 Hepatic encephalopathy; E87.6 Hypokalemia; I11.0 Hypertensive heart disease with heart failure; I48.92 Unspecified atrial flutter; I48.0 Paroxysmal atrial fibrillation; E66.01 Morbid (severe) obesity due to excess calories; F10.229 Alcohol dependence with intoxication, unspecified; Z59.00 Homelessness unspecified; Z86.73 Personal history of transient ischemic attack (TIA), and cerebral infarction without residual deficits; Z86.718 Personal history of other venous thrombosis and embolism; Z82.49 Family history of ischemic heart disease and other diseases of the circulatory system; Y90.7 Blood alcohol level of 200-239 mg/100 ml
CPT/HCPCS: 36415; 70450; 71045; 80048; 80053; 80061; 80307; 80320; 81001; 82140; 83036; 83735; 83880; 84439; 84443; 84481; 84484; 85025; 85379; 85610; 87081; 96365; G0378